=== PATIENT | female | born 1975 | race Caucasian/White ===

== ENCOUNTER 2021-11-12 10:35 | Outpatient (CLI) | payer OTHER | END 2021-11-12 10:46 | disposition home or self-care (01) | LOC: MAMO-SONO 10:35 | DX: N60.21 Fibroadenosis of right breast (principal); N60.22 Fibroadenosis of left breast; Z12.31 Encounter for screening mammogram for malignant neoplasm of breast; N63.20 Unspecified lump in the left breast, unspecified quadrant; N63.15 Unspecified lump in the right breast, overlapping quadrants; R19.02 Left upper quadrant abdominal swelling, mass and lump; R19.01 Right upper quadrant abdominal swelling, mass and lump ==

== ENCOUNTER → 2023-06-26 | Emergency (ER) | payer OTHER ==
[~2023-06-26] VITALS: Ht 172.7 cm; Wt 68.9 kg
== END | disposition home or self-care (01) ==
LOC: ER 08:24
DX: J02.0 Streptococcal pharyngitis (principal)

== ENCOUNTER 2023-07-08 07:58 | Emergency (ER) | payer OTHER ==
[~2023-07-08] VITALS: Ht 162.6 cm; Wt 65.8 kg
== END 2023-07-08 10:04 | disposition home or self-care (01) ==
LOC: ER 07:59
DX: Z48.02 Encounter for removal of sutures (principal)